=== PATIENT | female | born 2005 | race Caucasian/White ===

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

== ENCOUNTER 2024-03-06 11:58 | Emergency (ER) | payer OTHER ==
[~2024-03-06] VITALS: Wt 77.1 kg
[~2024-03-06 11:58] MED LIST changes: +AMOX-CLAV 875-1 EACH PO
[2024-03-06] MEDS ORDERED: methylPREDNISolone sod succ 125 MG VIAL IM ONE (12:15)
[2024-03-06] MEDS ORDERED: Ketorolac Tromethamine 30 MG/ML VIAL IM ONE (12:15)
[2024-03-06] MEDS ORDERED: MEDROL DOSEPAK4 MG PO (13:36)
[2024-03-06] MEDS ORDERED: AMOX-CLAV 875-1 EACH PO (14:49)
== END 2024-03-06 13:41 | disposition home or self-care (01) ==
LOC: ED 11:58
DX: J02.9 Acute pharyngitis, unspecified (principal); Z20.822 Contact with and (suspected) exposure to COVID-19; R05.9 Cough, unspecified; R09.89 Other specified symptoms and signs involving the circulatory and respiratory systems; Z79.2 Long term (current) use of antibiotics